=== PATIENT | female | born 1945 | race Caucasian/White ===

== ENCOUNTER → 2017-02-21 | Day surgery (SDC) | payer OTHER ==
[~2017-02-21] MED LIST: PREDISONE PO; PREMARIN0.625 MG PO; STOOL SOFTENER100 M1 PO
--- NOTE | ~2017-02-21 | OR ---
Unit #: [id number] #: [id number] Patient: SHAYY LOPEZ [id number] [address] [place], [place] [address] [id number] O MR#: [id number] NAME: SHAYY LOPEZ ROOM: Date of Procedure: 02/21/2017 Admission Date: 02/21/2017 Surgeon: Samson Mendoza M.D. : 1945 Attending Physician: Samson Mendoza M.D. Primary Care Physician: Odell Walters M.D. OPERATIVE REPORT PREOPERATIVE DIAGNOSES The patient has presented with several months history of intermittent shaking, chills, and rigors suggestive of cholangitis. She has been found to have multiple stones in the common bile duct on a CAT scan. PROCEDURES PERFORMED 1. Endoscopic retrograde cholangiopancreatography and biopsy. 2. Endoscopic retrograde cholangiopancreatography and stone extraction. 3. Endoscopic retrograde cholangiopancreatography and biliary stent placement. POSTOPERATIVE DIAGNOSES 1. The ampulla was highly abnormal with the large protuberant mass in this area. 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 Multiple biopsies were obtained and sent for histology. 2. The common bile duct was cannulated with the guidewire based technique and showed a single stone in the distal common bile duct. This was extracted after sphincterotomy and balloon extraction and was one of the larger stones that I have seen at least about 1 cm x 2.5 to 3 cm, almost look like a large peanut. 3. After stone extraction, a 10-Mongolian 5 cm biliary stent was deployed. 4. The intrahepatic biliary tree appeared normal. 5. No attempt was made at cannulation of the pancreatic duct. RECOMMENDATIONS 1. The patient was discharged home following the procedure with appropriate instructions. 2. She will call Dr. Card's office to schedule an outpatient laparoscopic cholecystectomy in the next few weeks. 3. The biliary stent will be removed in 6 to 8 weeks' time. SEDATION USED MAC. DESCRIPTION OF PROCEDURE Following detailed explanation of potential risks and complications of an ERCP, namely perforation, bleeding, and complication related to sedation, the patient was brought to GI lab and laid in the left semiprone position. Sedation using MAC was given. A lateral-viewing duodenoscope was advanced through the oral cavity into the esophagus and advanced into the stomach. Pylorus was intubated in the usual fashion. The scope was advanced in Unit #: [id number] #: [id number] Patient: SHAYY LOPEZ A deep descending duodenum. Upon shortening the scope, major papilla and ampullary was visualized en face. The patient was noted to have a very abnormal ampullary area with a large protuberant villous mass in this area. 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 We then proceeded with cannulation of the common bile duct using a guidewire based technique. This was easily done after discerning the ampullary orifice with some challenge. A contrast cholangiogram was obtained that showed presence of a large filling defect; even though, the common bile duct was only dilated to about 1 cm. A limited sphincterotomy was performed and using 9 to 12 mm retrieval balloon, attempt was made to extract the stone; however, after couple of attempts, the stone got impacted in the ampullary area. This was a large pigmented stone. We then extended the sphincterotomy by a few millimeters and the stone fell into the duodenum. It was at least 1 cm x 2.5 cm, almost like a peanut. The common bile duct was also swept additional couple of times to remove any debris. Small to moderate amount of pus also came out along with the debris. The cystic duct was not demonstrable on the occlusion cholangiogram. A 10-Mongolian 5 cm biliary stent was then deployed. After deployment of the stent, biopsies were obtained from the ampullary mass and sent for histology. The scope and the accessories were then withdrawn and the patient returned to the recovery area. She tolerated the procedure without any postprocedure complications. Dictated by... Dennis Mejia/agueda TD: 02/22/2017 16:00 JOB #: [id number] CC: Darren Card M.D. OPERATIVE REPORT Page 1 of 1 X Samson Mendoza MD X PROCEDURE OPERATIVE NOTE
--- NOTE | ~2017-02-21 | OR ---
Unit #: [id number] #: [id number] Patient: SHAYY LOPEZ [id number] [address] [place], [place] [address] [id number] O MR#: [id number] NAME: SHAYY LOPEZ ROOM: Date of Procedure: 02/21/2017 Admission Date: 02/21/2017 Surgeon: Samson Mendoza M.D. : 1945 Attending Physician: Samson Mendoza M.D. Primary Care Physician: Odell Walters M.D. OPERATIVE REPORT PRIMARY CARE PHYSICIAN Odell Walters M.D. PREOPERATIVE DIAGNOSES Dysphagia and epigastric pain. PROCEDURES PERFORMED 1. Upper gastrointestinal endoscopy and biopsy. 2. Upper gastrointestinal endoscopy and dilation. POSTOPERATIVE DIAGNOSES 1. The patient had a distal esophageal benign stricture. The latter was dilated using an 18 to 20 mm TTS balloon. 2. There was moderate prepyloric antral erosive gastritis and a single posterior antral gastric ulcer about 6 mm in size. The ulcer had grayish-white base and no stigmata of recent bleed. 3. Rest of the examination up to third part of duodenum was normal. A biopsy was obtained from the antrum for CLOtest. RECOMMENDATIONS The patient is being started on pantoprazole 40 mg p.o. daily. She will be followed up in the office in 6 to 8 weeks' time. She is also to undergo ERCP shortly. SEDATION USED MAC. DESCRIPTION OF PROCEDURE Following detailed explanation of potential risks and complications of an upper endoscopy, namely perforation, bleeding, and complications related to sedation, the patient was brought to GI lab and laid in the left lateral decubitus position. Lubricated tip of the Olympus video upper endoscope was passed through the bite block into the proximal esophagus under direct vision. The entire esophageal mucosa was examined. The patient was noted to have distal esophageal benign stricture with a classic appearance. The stricture was clearly felt to be obstructing. The scope was then advanced past the small hiatus hernia into the gastric cavity. Mucosa of the fundus, body, and antrum was examined and moderate diffuse prepyloric antral erosive gastritis were noted. In addition, a single gastric ulcer was also noted posteriorly in the prepyloric antral area. This had a grayish-white ulcer base measured about 6 mm and no stigmata of recent bleed. Pylorus was intubated with visualization of the Unit #: [id number] #: [id number] Patient: SHAYY LOPEZ A normal duodenal bulb and second and third part of the duodenum. Upon withdrawal and retroflexion; incisura, cardia, and greater curve was examined and biopsy was obtained from the antrum for CLOtest. The scope was then withdrawn in the distal esophagus. The distal esophageal stricture was then dilated using an 18 to 20 mm TTS balloon. Excellent dilation was achieved and photodocumentation was obtained. Minimal bleeding was noted. The area was thoroughly washed with water and good hemostasis was achieved. The scope was then withdrawn all the way up to pharynx. No additional findings were noted. The patient tolerated the procedure without any postprocedure complications. Dictated by... Dennis Mejia/agueda TD: 02/22/2017 16:08 JOB #: [id number] CC: Darren Card M.D. OPERATIVE REPORT Page 1 of 1 X Samson Mendoza MD X PROCEDURE OPERATIVE NOTE
--- NOTE | ~2017-02-21 | CR84 ---
[facility] A Service of [facility] & [facility] RADIOLOGY TEXT RESULTS PATIENT: SHAYY LOPEZ LOCATION: [facility] : [birth year] UNIT #: [id number] AGE: [address]: Samson Mendoza MD SEX: F ORDER DR: [id number] [facility] [address] [place], [place] [address] [id number] O MR#: [id number] Acc #: [id number] NAME: SHAYY LOPEZ : 1945 SEX: F STUDY DATE/TIME: 02/21/2017 12:36 UNIT: [facility] ROOM: STUDY DESCRIPTION: CR ERCP Biliary and Pancr SI Attending Physician: Samson Mendoza M.D. Ordering Physician: Samson Mendoza M.D. Primary Care Physician: Odell Walters M.D. MEDICAL IMAGING REPORT This report is preliminary unless electronic signature is present EXAM ERCP, 02/21/2017. HISTORY Epigastric abdominal pain since May 2016 with constipation alternating with diarrhea. Abnormal CT scan of the abdomen and pelvis 02/18/2017 demonstrated dilatation of the common bile duct with probable stones in the common duct. FINDINGS ERCP was performed by Dr. Mendoza. Seven spot film radiographs of the upper abdomen were obtained and 1.36 minutes of fluoroscopy time was utilized. The injection of the pancreatic duct was not attempted. Contrast injection of the biliary tree showed dilatation of the common bile duct with filling defects in the common duct characteristic of stones. Dr. Mendoza described a suspicious appearing mass in the common duct in the ampullary area. Clinical correlation is recommended. Sphincterotomy was performed by Dr. Mendoza. A balloon catheter was used to remove a single large stone from the common duct and a stent was then placed in the common bile duct at the end of the exam. Dictated by... Goran Merino M.D. THIS IS AN ELECTRONICALLY VERIFIED REPORT Goran Merino M.D. at 02/22/2017 6:18 AM HORTENCIA/ryder TD: 02/21/2017 23:48 JOB #: [id number] MEDICAL IMAGING REPORT [facility] A Service of [facility] & [facility] RADIOLOGY TEXT RESULTS PATIENT: SHAYY LOPEZ LOCATION: [facility] : [birth year] UNIT #: [id number] AGE: [address]: Samson Mendoza MD SEX: F ORDER DR: Page 1 of 1 COPY
== END | disposition home or self-care (01) ==
LOC: COPS 09:21
DX: K22.2 Esophageal obstruction (principal); K25.9 Gastric ulcer, unspecified as acute or chronic, without hemorrhage or perforation; K80.50 Calculus of bile duct without cholangitis or cholecystitis without obstruction; D13.5 Benign neoplasm of extrahepatic bile ducts; K44.9 Diaphragmatic hernia without obstruction or gangrene; K21.9 Gastro-esophageal reflux disease without esophagitis; Z87.891 Personal history of nicotine dependence; Z90.711 Acquired absence of uterus with remaining cervical stump; Z98.890 Other specified postprocedural states
CPT/HCPCS: 74330; 87077; 88305; J1610; J3010